=== PATIENT | male | born 1965 | race Caucasian/White ===

== ENCOUNTER → 2016-12-11 | Outpatient (CLI) | payer OTHER ==
[2016-12-11 10:22] LABS: Anisocytosis Slight; CH 19.2; CHCM 27.6; HCT 33.6 % (39.0-53.0); HDW 3.66; HGB 9.6 gm/dL (13.0-17.5); Hypochromasia Marked; MCH 20.1 pg (25.0-35.0); MCHC 28.7 g/dL (31.0-37.0); MCV 70.1 fL (80.0-100.0); Mean Platelet Volume 8.6; Microcytosis Marked; Poikilocytosis Slight; RBC 4.79 m/uL (4.30-5.90); WBC 4.8 k/uL (3.8-10.6)
[2016-12-11 10:49] LABS: Anion Gap 9 mmol/L; Blood Urea Nitrogen 16 mg/dL (9-20); Carbon Dioxide 25 mmol/L (22-30); Chloride 106 mmol/L (98-107); Non-African American GFR(MDRD) >60 (>60 ml/min/1.73 sqM); Potassium 4.5 mmol/L (3.5-5.1); Sodium 140 mmol/L (137-145)
== END | disposition home or self-care (01) ==
LOC: LABPAT 10:01
PROVIDERS: ATTEND Internal Medicine Interventional Cardiology
DX: Z01.812 Encounter for preprocedural laboratory examination (principal); I25.10 Atherosclerotic heart disease of native coronary artery without angina pectoris
CPT/HCPCS: 80051; 82565; 84520; 85027

== ENCOUNTER 2016-12-15 06:07 | Day surgery (SDC) | payer OTHER ==
[2016-12-15] MEDS ORDERED: ASPIRIN 325 MG TAB PO STA (06:12)
[2016-12-15] MEDS ORDERED: NITROGLYCERIN SL TABS 0.4 MG TAB SUBLINGUAL PRN ×2 (06:12→08:38)
[2016-12-15] MEDS ORDERED: SODIUM CHLORIDE 0.9% 1,000 ML in EMPTY BAG 1 BAG IV ONE (06:12)
[2016-12-15] MEDS ORDERED: ALPRAZolam 0.25 MG TAB PO PRN (06:12)
[2016-12-15] MEDS ORDERED: ATORVASTATIN 80 MG TAB PO STA (06:12)
[2016-12-15] MEDS ORDERED: ALPRAZolam 0.5 MG TAB PO PRN ×2 (06:12→08:38)
[2016-12-15] MEDS ORDERED: LIDOCAINE 2% INJ 20 MG/ML (20 ML MDV) ONE (07:16)
[2016-12-15] MEDS ORDERED: VERAPAMIL 2.5 MG/ML 2 ML AMP ONE (07:16)
[2016-12-15] MEDS ORDERED: MIDAZOLAM 2 MG/2 ML VIAL ONE (07:38)
[2016-12-15] MEDS ORDERED: SODIUM CHLORIDE 0.9% 1,000 ML IV ONE (07:41)
[2016-12-15] MEDS: MIDAZOLAM 2 MG/2 ML VIAL IVP ONE ×2 (08:01→08:04)
[2016-12-15] MEDS ORDERED: LIDOCAINE 2% INJ 20 MG/ML SQ ONE (08:04)
[2016-12-15] MEDS ORDERED: HEPARIN SODIUM 1,000 UNIT/ML VIAL IV ONE (08:05)
[2016-12-15] MEDS: VERAPAMIL SYRINGE (5 MG/10 ML) INTRAARTER ONE ×2 (08:05→08:34)
[2016-12-15] MEDS ORDERED: BIVALIRUDIN BOLUS 250 MG/50 ML IV ONE (08:19)
[2016-12-15] MEDS ORDERED: BIVALIRUDIN 250 MG in SODIUM CHLORIDE 0.9% 50 ML IV ONE (08:20)
[2016-12-15] MEDS: NITROGLYCERIN 1000MCG/10ML SYRINGE INTRACORON ONE ×2 (08:22→08:32)
[2016-12-15] MEDS ORDERED: HEPARIN SODIUM 1,000 UNIT/ML VIAL ONE (08:23)
[2016-12-15] MEDS ORDERED: PRASUGREL 10 MG TAB ONE (08:30)
[2016-12-15] MEDS ORDERED: IOHEXOL 350 MG/ML 100 ML BOTTLE INJ ONE (08:32)
[2016-12-15] MEDS ORDERED: PRASUGREL 10 MG TAB PO ONE (08:32)
[2016-12-15] MEDS ORDERED: ATROPINE SULFATE 0.1 MG/ML 10ML SYRINGE IV PRN (08:38)
[2016-12-15] MEDS ORDERED: MAG HYDROX/AL HYDROX/SIMETH 30 ML CUP PO PRN (08:38)
[2016-12-15] MEDS ORDERED: RX INFO: IV CONTRAST WAS GIVEN 1 EACH MISC MISCELLANE PRN (08:38)
[2016-12-15] MEDS ORDERED: METOPROLOL TARTRATE 25 MG TAB PO SCH (09:00)
[2016-12-15] MEDS: SODIUM CHLORIDE 0.9% 1,000 ML IV SCH ×2 (09:12→11:11)
[2016-12-15 09:51] VITALS: BMI 34.7
[2016-12-15] MEDS ORDERED: CITALOPRAM HYDROBROMIDE 20 MG TAB PO SCH (21:00)
[2016-12-15] MEDS ORDERED: ZOLPIDEM 5 MG TAB PO PRN (21:00)
[2016-12-15] MEDS: NIACIN TR 500 MG CAPSULE.ER PO SCH (21:12)
[2016-12-15] MEDS: METOPROLOL TARTRATE 25 MG TAB PO SCH (21:12)
--- NOTE | 2016-12-15 23:53 | CC ---
DATE OF SERVICE: 12/15/2016 PERFORMING PHYSICIAN: Constantino Trejo M.D., torts law professor. PROCEDURES PERFORMED: 1. Selective left coronary angiogram. 2. Successful stenting of the mid left anterior descending artery using a 3.0 x 15 mm Xience ROOSEVELT with good angiographic results. INDICATION: This is a pleasant 51-year-old gentleman who is known to have coronary artery disease and prior stenting of the mid left circumflex in the past. It was performed in [address] of town. He was experiencing intermittent episodes of chest discomfort consistent with angina. 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 APPROACH: Right radial artery. COMPLICATIONS: None. LEVEL OF SEDATION: Moderate, with a sedation length of 33 minutes. PROCEDURE DESCRIPTION: After obtaining informed consent, the patient was brought to the cardiac director geophysical laboratory. The right radial artery was cannulated using micropuncture technique. The micropuncture wire passed easily. Then I placed a 6 Kazakh sheath in the right radial artery. I gave the patient 2 mg of Verapamil IA and 3000 units of heparin IV. After that I did selective left coronary angiogram using JL3.5 catheter. I did not do selective right coronary angiogram because I know that the right coronary artery originates from the left coronary cusp and it is a small, non-dominant artery. After that I intervened on the LAD. Please see separate paragraph for that. SELECTIVE CORONARY ANGIOGRAM: 1. The left main is a large-caliber vessel. It is angiographically normal. It bifurcates into the left circumflex and left anterior descending artery. 2. The left circumflex is a large-caliber vessel and it is a dominant vessel. The proximal left circumflex has mild disease only and gives rise to the first OM branch, which appeared to be angiographically normal. The mid left circumflex is stented, and the stent is patent. It gives rise to the second OM branch, which is a large-caliber vessel and seems to be angiographically normal. The left circumflex distally is angiographically normal and bifurcates into PDA and PLV branches; both are angiographically normal. 3. Left anterior descending artery. The proximal LAD appeared to have mild disease only. The mid LAD appeared to have a lesion, hazy and tight in the range of 70%. The LAD distally appeared to be angiographically normal. PCI OF THE LAD: Anticoagulation was initiated using Angiomax. Subsequently I took the JL3.5 guide, and the left main was engaged. A Whisper wire was used to wire the left anterior descending artery, and the wire was positioned in the distal LAD. After that I did balloon angioplasty, initially using a 2.5 x 12 mm balloon, and subsequently I stented the LAD using a 3.0 x 15 mm Xience ROOSEVELT, where the stent was positioned under fluoroscopy guidance and deployed under 10 atmospheres for 20 seconds. The following angiogram showed good angiographic results without perforation and without dissection. CONCLUSION: 1. Dominant left circumflex coronary system. 2. 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 3. Normal left main coronary artery. 4. Patent stent in the mid left circumflex. 5. Severe de calin coronary artery disease involving the mid left anterior descending artery. 6. Successful stenting of the mid LAD using a 3.0 x 15 mm Xience ROOSEVELT, with good angiographic results. POST-PROCEDURE MANAGEMENT: 1. Dual antiplatelet therapy. 2. Risk factor modifications. 3. Follow up with the patient.
--- NOTE | 2016-12-15 23:55 | LTR ---
December 15, 2016 RE: Josef Jauregui Dear Tyrese, Mr. Josef Jauregui was experiencing intermittent episodes of chest discomfort consistent with angina. I performed a heart catheterization on him today and that showed patent stent in the left circumflex but severe disease involving the mid left anterior descending artery. He underwent successful stenting of the mid LAD with good angiographic results and without any complication. I want to thank you for allowing me to participate in his care. Please do not hesitate to call with any question or concerns. Sincerely, BERNADINE LATHAM MD
[2016-12-16 05:53] VITALS: PULSE 60
[2016-12-16 06:18] LABS: Anisocytosis Slight; Basophils % (A) 0 %; CH 19.4; Eosinophils # (A) 0.1 k/uL (0-0.7); Eosinophils % (A) 1 %; HCT 34.3 % (39.0-53.0); HDW 3.69; HGB 9.7 gm/dL (13.0-17.5); Hypochromasia Marked; Luc # (Auto) 0.27; Luc % (Auto) 4; Lymphocytes # (A) 1.2 k/uL (1.0-4.8); Lymphocytes % (A) 19 %; MCH 19.6 pg (25.0-35.0); MCHC 28.2 g/dL (31.0-37.0); MCV 69.6 fL (80.0-100.0); Microcytosis Marked; Monocytes # (A) 0.5 k/uL (0-1.0); Monocytes % (A) 8 %; Neutrophils # (A) 4.4 k/uL (1.3-7.7); Neutrophils % (A) 68 %; Poikilocytosis Slight; RBC 4.93 m/uL (4.30-5.90); RDW 18.4 % (11.5-15.5); WBC 6.5 k/uL (3.8-10.6); WBC (Perox) 7.08
[2016-12-16 06:28] LABS: Anion Gap 11 mmol/L; Blood Urea Nitrogen 13 mg/dL (9-20); Calcium 8.7 mg/dL (8.4-10.2); Carbon Dioxide 24 mmol/L (22-30); Chloride 103 mmol/L (98-107); Glucose 100 mg/dL (74-99); Non-African American GFR(MDRD) >60 (>60 ml/min/1.73 sqM); Potassium 4.2 mmol/L (3.5-5.1); Sodium 138 mmol/L (137-145)
[2016-12-16] MEDS ORDERED: PRASUGREL 10 MG TAB PO SCH (09:00)
[2016-12-16] MEDS ORDERED: ASPIRIN 81 MG CHEW PO SCH (09:00)
[2016-12-16] MEDS: NIACIN TR 500 MG CAPSULE.ER PO SCH (10:05)
[2016-12-16] MEDS: METOPROLOL TARTRATE 25 MG TAB PO SCH (10:06)
[2016-12-16 10:59] VITALS: BP 111/66; RESP 16; TEMP 97.6
[2016-12-16] MEDS ORDERED: ATORVASTATIN 40 MG TAB PO SCH (21:00)
--- NOTE | 2016-12-17 09:38 | DS ---
DATE OF ADMISSION: 12/15/2016 DATE OF DISCHARGE: 12/16/2016 BRIEF HISTORY: This is a pleasant 51-year-old male patient who is known to have coronary artery disease and prior stenting of the left circumflex was experiencing chest discomfort consistent with angina. He underwent a heart catheterization yesterday and that showed patent stent in the mid left circumflex, but he was found to have severe disease involving the mid LAD where he underwent stenting of the mid LAD using Xience ROOSEVELT with a good angiographic result. On followup with him today, he is doing good and he is asymptomatic. The procedure was performed from the right radial artery. He does have good right radial pulse. From the cardiovascular standpoint of view, the patient can be discharged home and I will follow up with the patient as an outpatient in the office.
== END 2016-12-16 11:03 | disposition home or self-care (01) ==
LOC: CATHCVL 06:07 → 6SEL 08:33 → CATHCVL 12-16 11:03
PROVIDERS: ATTEND Internal Medicine Interventional Cardiology
DX: I25.110 Atherosclerotic heart disease of native coronary artery with unstable angina pectoris (principal); I10 Essential (primary) hypertension; E78.5 Hyperlipidemia, unspecified; Z95.5 Presence of coronary angioplasty implant and graft; Z87.891 Personal history of nicotine dependence; E66.3 Overweight; Z68.34 Body mass index [BMI] 34.0-34.9, adult; Z79.82 Long term (current) use of aspirin; Z79.899 Other long term (current) drug therapy; Z88.6 Allergy status to analgesic agent
CPT/HCPCS: 93454; 80048; 85025; 99152; 99153; C9600; C1769; C1887; C1725; C1874; C1894; J2001; J2250; Q9967; J1644; J0583

== ENCOUNTER → 2017-07-06 | Outpatient (CLI) | payer OTHER ==
--- NOTE | 2017-07-06 16:54 | CT ---
EXAMINATION TYPE: CT abdomen wo/w con DATE OF EXAM: 07/06/2017 COMPARISON: 06/17/2017 ultrasound HISTORY: Abnormal lab results and upper abdomen discomfort CT DLP: 2535.4 mGycm Automated exposure control for dose reduction was used. TECHNIQUE: Helical acquisition of images was performed from the lung bases through the top of iliac crest to include entire abdomen. CONTRAST: Performed with Oral Contrast and without and with IV Contrast, patient injected with 100 mL of Omnipa que 300. FINDINGS: LUNG BASES: No significant abnormality is appreciated. LIVER/GB: No significant abnormality is appreciated. PANCREAS: No significant abnormality is seen. SPLEEN: No significant abnormality is seen. ADRENALS: No significant abnormality is seen. KIDNEYS: There are punctate calcifications which appear to be predominantly cortical bilaterally with 2 noted on the left and 5 on the right. No hydronephrosis. There is marked atrophy of the right kidn ey with cortical thinning compatible with chronic medical renal disease. 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 The smaller ap pearing additional left-sided kidney may be directly opposed to the larger left kidney but contains c alcifications and cortical thinning similar to the right-sided kidney. Hypodense lesion lower pole right kidney is too small to characterize. BOWEL: No significant abnormality is seen. LYMPH NODES: No significant abnormality is seen. OSSEOUS STRUCTURES: Hypertrophic and degenerative change of the spine noted.. OTHER: Aorta of normal caliber. IMPRESSION: 1. Right kidney appears to be atrophic with cortical loss and cortical calcifications. Contains a les s than 1 cm indeterminate lower pole right renal lesion. 2. Left kidney appears to be enlarged with additional cortical calcifications. No hydronephrosis. 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 The upper pole cortex of the sm aller kidney may fuse with the lower pole of the larger kidney. 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 3. Normal-appearing pancreas
== END | disposition home or self-care (01) ==
LOC: RADCTMAIN 15:08
PROVIDERS: ATTEND Family Medicine
DX: N28.89 Other specified disorders of kidney and ureter (principal)
CPT/HCPCS: 74170; Q9967

== ENCOUNTER 2019-03-09 09:53 | Observation (INO) | payer OTHER ==
[2019-03-09] MEDS ORDERED: ASPIRIN 81 MG PO STA (10:30)
[2019-03-09] MEDS ORDERED: NITROGLYCERIN OINT 1 INCH/GM PACKET TOPICAL STA (10:30)
--- NOTE | 2019-03-09 10:37 | ED ---
General Adult HPI - General Chief complaint: Chest Pain Stated complaint: Chest pain,SOB Time Seen by Provider: 03/09/19 10:00 Source: patient, RN notes reviewed Mode of arrival: wheelchair Limitations: no limitations - History of Present Illness Initial comments: This is a 53-year-old male who presents emergency Department with a past medical history significant for heart attack and 2 stent placements. Patient also has high blood pressure high cholesterol and a smoking history but he did quit 5 years ago. Patient comes in today complaining of chest pain. Patient states with the chest pain he was also short of breath. Patient states been inter mittent since 3 AM. Patient states the same type of pain that he had when he had his heart attack the only differences it's not as severe. Patient denies any abdominal pain. Patient denies any palpitations. Patient denies any nausea or vomiting. Patient denies any diaphoretic episodes. Patient states currently is chest pain-free. Patient denies any lightheadedness dizziness or near syncopal episode. Patient denies any numbness or weakness. Patient denies any leg swelling or calf tenderness. - Related Data Home Medications Medication Instructions Recorded Confirmed ALPRAZolam [Xanax] 0.5 mg PO DAILY 12/10/16 03/09/19 Aspirin 81 mg PO DAILY 12/10/16 03/09/19 Atorvastatin [Lipitor] 40 mg PO DAILY 12/10/16 03/09/19 Niacin 500 mg PO DAILY 12/10/16 03/09/19 Metoprolol Tartrate 25 mg PO BID 12/11/16 03/09/19 FLUoxetine HCL [PROzac] 40 mg PO DAILY 03/09/19 03/09/19 Allergies Allergy/AdvReac Type Severity Reaction Status Date / Time ENTERIC COATING Allergy Unknown Uncoded 03/09/19 10:23 Review of Systems ROS Statement: Those systems with pertinent positive or pertinent negative responses have been documented in the HPI. ROS Other: All systems not noted in ROS Statement are negative. Past Medical History Past Medical History: Hyperlipidemia, Hypertension, Myocardial Infarction (ME) Additional Past Medical History / Comment(s): NEPHRITIS Last Myocardial Infarction Date:: Feb History of Any Multi-Drug Resistant Organisms: None Reported Past Surgical History: Heart Catheterization With Stent, Hernia Repair Additional Past Surgical History / Comment(s): RIGHT FOOT SURGERY, Past Anesthesia/Blood Transfusion Reactions: No Reported Reaction Date of Last Stent Placement:: FEB 2013 Past Psychological History: Panic Disorder Smoking Status: Former smoker Past Alcohol Use History: None Reported Past Drug Use History: None Reported - Past Family History Sister(s) Family Medical History: Cancer Additional Family Medical History / Comment(s): LUNG CANCER General Exam - General Exam Comments Initial Comments: GENERAL: Patient is well-developed and well-nourished. Patient is nontoxic and well- hydrated and is in no acute distress. ENT: Neck is soft and supple. No significant lymphadenopathy is noted. Oropharynx is clear. Moist mucous membranes. Neck has full range of motion without eliciting any pain. EYES: The sclera were anicteric and conjunctiva were pink and moist. Extraocular movements were intact and pupils were equal round and reactive to light. Eyelids were unremarkable. PULMONARY: Unlabored respirations. Good breath sounds bilaterally. No audible rales rhonchi or wheezing was noted. CARDIOVASCULAR: There is a regular rate and rhythm without any murmurs gallops or rubs. ABDOMEN: Soft and nontender with normal bowel sounds. No palpable organomegaly was noted. There is no palpable pulsatile mass. SKIN: Skin is clear with no lesions or rashes and otherwise unremarkable. NEUROLOGIC: Patient is alert and oriented x3. Cranial nerves II through XII are grossly intact. Motor and sensory are also intact. Normal speech, volume and content. Symmetrical smile. MUSCULOSKELETAL: Normal extremities with adequate strength and full range of motion. No lower extremity swelling or edema. No calf tenderness. LYMPHATICS: No significant lymphadenopathy is noted PSYCHIATRIC: Normal psychiatric evaluation. Limitations: no limitations Course Vital Signs 03/09/19 03/09/19 03/09/19 09:56 10:40 10:58 Temperature 98.4 F Pulse Rate 56 L Pulse Rate [ 62 Event Technician ] Respiratory 18 16 Rate Blood Pressure 166/82 O2 Sat by Pulse 98 Oximetry 03/09/19 03/09/19 11:02 11:24 Temperature Pulse Rate 51 L 51 L Pulse Rate [ Event Technician ] Respiratory 16 18 Rate Blood Pressure 119/69 119/69 O2 Sat by Pulse 99 99 Oximetry Medical Decision Making - Medical Decision Making EKG shows sinus bradycardia 51 bpm MS interval is 186 QRS is 76 QT intervals 416 QTC is 383. Patient's EKG shows no ST segment elevation or depression or T wave abnormalities are noted. Chest x-ray shows no acute abnormality. Patient's hemoglobin was 8.3 side did not start the patient on heparin even though I believe he is having unstable angina. I spoke with Dr. Christopher she agreed to admit the patient admitted the patient I wrote admitting orders I wrote a consult for cardiology. - Lab Data Result diagrams: 03/09/19 10:24 03/09/19 10:24 Lab Results 03/09/19 03/09/19 03/09/19 Range/Units 10:24 10:24 10:24 WBC 4.2 (3.8-10.6) k/uL RBC 4.68 (4.30-5.90) m/uL Hgb 8.3 L (13.0-17.5) gm/dL Hct 30.4 L (39.0-53.0) % MCV 65.0 L (80.0-100.0) fL MCH 17.6 L (25.0-35.0) pg MCHC 27.2 L (31.0-37.0) g/dL RDW 19.8 H (11.5-15.5) % Plt Count 224 (150-450) k/uL Neutrophils % (Manual) 70 % Band Neutrophils % 1 % Lymphocytes % (Manual) 21 % Monocytes % (Manual) 7 % Eosinophils % (Manual) 1 % Neutrophils # (Manual) 2.90 (1.3-7.7) k/uL Lymphocytes # (Manual) 0.88 L (1.0-4.8) k/uL Monocytes # (Manual) 0.29 (0-1.0) k/uL Eosinophils # (Manual) 0.04 (0-0.7) k/uL Nucleated RBCs 0 (0-0) /100 WBC Manual Slide Review Performed Hypochromasia Marked Poikilocytosis Moderate Anisocytosis Slight Microcytosis Marked PT 10.6 (9.0-12.0) sec INR 1.0 (<1.2) APTT 25.5 (22.0-30.0) sec Sodium 139 (137-145) mmol/L Potassium 4.1 (3.5-5.1) mmol/L Chloride 104 (98-107) mmol/L Carbon Dioxide 27 (22-30) mmol/L Anion Gap 8 mmol/L BUN 19 (9-20) mg/dL Creatinine 1.01 (0.66-1.25) mg/dL Est GFR (CKD-EPI)AfAm >90 (>60 ml/min/1.73 sqM) Est GFR (CKD-EPI)NonAf 84 (>60 ml/min/1.73 sqM) Glucose 144 H (74-99) mg/dL Calcium 8.9 (8.4-10.2) mg/dL Magnesium 2.0 (1.6-2.3) mg/dL Total Bilirubin 0.8 (0.2-1.3) mg/dL AST 22 (17-59) U/L ALT 21 (21-72) U/L Alkaline Phosphatase 82 (38-126) U/L Troponin I (0.000-0.034) ng/mL Total Protein 7.2 (6.3-8.2) g/dL Albumin 4.0 (3.5-5.0) g/dL 03/09/19 Range/Units 10:24 WBC (3.8-10.6) k/uL RBC (4.30-5.90) m/uL Hgb (13.0-17.5) gm/dL Hct (39.0-53.0) % MCV (80.0-100.0) fL MCH (25.0-35.0) pg MCHC (31.0-37.0) g/dL RDW (11.5-15.5) % Plt Count (150-450) k/uL Neutrophils % (Manual) % Band Neutrophils % % Lymphocytes % (Manual) % Monocytes % (Manual) % Eosinophils % (Manual) % Neutrophils # (Manual) (1.3-7.7) k/uL Lymphocytes # (Manual) (1.0-4.8) k/uL Monocytes # (Manual) (0-1.0) k/uL Eosinophils # (Manual) (0-0.7) k/uL Nucleated RBCs (0-0) /100 WBC Manual Slide Review Hypochromasia Poikilocytosis Anisocytosis Microcytosis PT (9.0-12.0) sec INR (<1.2) APTT (22.0-30.0) sec Sodium (137-145) mmol/L Potassium (3.5-5.1) mmol/L Chloride (98-107) mmol/L Carbon Dioxide (22-30) mmol/L Anion Gap mmol/L BUN (9-20) mg/dL Creatinine (0.66-1.25) mg/dL Est GFR (CKD-EPI)AfAm (>60 ml/min/1.73 sqM) Est GFR (CKD-EPI)NonAf (>60 ml/min/1.73 sqM) Glucose (74-99) mg/dL Calcium (8.4-10.2) mg/dL Magnesium (1.6-2.3) mg/dL Total Bilirubin (0.2-1.3) mg/dL AST (17-59) U/L ALT (21-72) U/L Alkaline Phosphatase (38-126) U/L Troponin I <0.012 (0.000-0.034) ng/mL Total Protein (6.3-8.2) g/dL Albumin (3.5-5.0) g/dL Disposition Clinical Impression: Unstable angina pectoris, Anemia Disposition: ADMITTED IP TO THIS HOSP Referrals: Tyrese Christopher DO [Primary Care Provider] - 1-2 days Time of Disposition: 12:24
[2019-03-09 10:51] LABS: Partial Thromboplastin Time 25.5 sec (22.0-30.0); Prothrombin Time 10.6 sec (9.0-12.0)
[2019-03-09 10:53] LABS: ALT 21 U/L (21-72); AST 22 U/L (17-59); African American GFR (CKD) >90 (>60 ml/min/1.73 sqM); Alkaline Phosphatase 82 U/L (38-126); Anion Gap 8 mmol/L; Blood Urea Nitrogen 19 mg/dL (9-20); Calcium 8.9 mg/dL (8.4-10.2); Carbon Dioxide 27 mmol/L (22-30); Chloride 104 mmol/L (98-107); Glucose 144 mg/dL (74-99); Potassium 4.1 mmol/L (3.5-5.1); Sodium 139 mmol/L (137-145); Total Bilirubin 0.8 mg/dL (0.2-1.3); Total Protein 7.2 g/dL (6.3-8.2)
[2019-03-09 11:07] LABS: Anisocytosis Slight; HCT 30.4 % (39.0-53.0); HGB 8.3 gm/dL (13.0-17.5); Hypochromasia Marked; MCH 17.6 pg (25.0-35.0); MCHC 27.2 g/dL (31.0-37.0); Microcytosis Marked; Platelet Count 224 k/uL (150-450); Poikilocytosis Moderate; RBC 4.68 m/uL (4.30-5.90); RDW 19.8 % (11.5-15.5); WBC 4.2 k/uL (3.8-10.6)
[2019-03-09 11:46] LABS: Band Neutrophils % 1 %; Eosinophils # (M) 0.04 k/uL (0-0.7); Lymphocytes # (M) 0.88 k/uL (1.0-4.8); Monocytes # (M) 0.29 k/uL (0-1.0); Neutrophils % (M) 70 %; Nucleated Red Blood Cells 0 /100 WBC (0-0); Total Cells Counted 100
--- NOTE | 2019-03-09 11:48 | XR ---
EXAMINATION TYPE: XR chest 2V DATE OF EXAM: 03/09/2019 COMPARISON: 06/13/2017 HISTORY: 53-year-old male with chest pain TECHNIQUE: PA and lateral views FINDINGS: Heart upper limits of normal in size. Aorta and pulmonary vasculature within normal limits. Mild stra ndy atelectasis lower lungs. No consolidation or pleural effusion seen. IMPRESSION: For the heart size. Strandy lower lung atelectasis. No acute cardiopulmonary process seen.
[2019-03-09] MEDS ORDERED: NITROGLYCERIN SL TABS 0.4 MG TAB SUBLINGUAL PRN (12:25)
--- NOTE | 2019-03-09 15:22 | P.CRDCN ---
History of Present Illness History of present illness: This is a pleasant 53-year-old male past medical history significant for coronary artery disease status post stent placement to the circumflex and LAD, myocardial infarction in 2013, diabetes mellitus, hypertension, dyslipidemia, chronic anemia, former nicotine dependence and obesity. He follows in the office with Dr. Trejo. We have been asked to see him in consultation secondary to chest discomfort and shortness of breath. He states he woke up acutely at 0300 from sleep feeling short of breath. He got up and did some work and his shortness of breath subsided. Later in the morning he was at work exerting himself and he again became short of breath and had chest tightness. The discomfort did not radiate to his arms, back, neck or jaw. This episode was associated with diaphoresis. No dizziness, nausea, vomiting or palpitations. The chest tightness persisted with rest so he came to ED for evaluation. Chest pain resolved with nitropaste. He describes a similar type [place] n with his SC in 2012 however this instance is less intense. Cardiac catherization performed in 2016 revealed LM free of disease, circumflex mild disease proximally with patent mid stent, first OM normal, LAD mild disease proximally with a mid lesion 70% that was stented at that time. No RCA engaged due to origination from the left coronary artery cusp and small non-dominant artery. EKG reveals sinus bradycardia heart rate [address] or T wave abnormalities noted. Chest x-ray reveals some evidence of atelectasis with no acute cardiopulmonary process. Laboratory data reviewed, hemoglobin 8.3, platelets 224, sodium 139, potassium 4.1, creatinine 1.01, magnesium 2.0, cardiac enzymes negative 1. Current cardiac medications include aspirin 81 mg daily, atorvastatin 40 mg daily and metoprolol 25 mg twice a day. Most recent echocardiogram in the office March 2018 reveals preserved LV systolic function with ejection fraction 60%. At the time of my exam: CONSTITUTIONAL: Denies fever. Denies chills. EYES: Denies blurred vision. Denies vision changes. Denies eye pain. EARS, NOSE, MOUTH & THROAT: Denies headache. Denies sore throat. Denies ear pain. CARDIOVASCULAR: Denies chest pain. Denies shortness of breath. Denies orthopnea. Denies PND. Denies palpitations. RESPIRATORY: Denies cough. GASTROINTESTINAL: Denies abdominal pain. Denies diarrhea. Denies constipation. Denies nausea. Denies vomiting. MUSCULOSKELETAL: Denies myalgias. INTEGUMENTARY: Denies pruitis. Denies rash. NEUROLOGIC: Denies numbness. Denies tingling. Denies weakness. PSYCHIATRIC: Denies anxiety. Denies depression. ENDOCRINE: Denies fatigue. Denies weight change. Denies polydipsia. Denies polyurina. GENITOURINARY: Denies burning, hematuria or urgency with micturation. HEMATOLOGIC: Denies history of anemia. Denies bleeding. Blood pressure 122/72 heart rate 58 afebrile maintaining oxygen saturation on room air. GENERAL: This is a 53-year-old male in no apparent distress at the time of my examination. HEENT: Head is atraumatic, normocephalic. Pupils are equal, round. Sclerae anicteric. Conjunctivae are clear. Mucous membranes of the mouth are moist. Neck is supple. There is no jugular venous distention. No carotid bruit is heard. LUNGS: Clear to auscultation no wheezes, rales or rhonchi. No chest wall tenderness is noted on palpation or with deep breathing. HEART: Regular rate and rhythm without murmurs, rubs or gallops. S1 and S2 heard. ABDOMEN: Soft, nontender. Bowel sounds are heard. No organomegaly noted. EXTREMITIES: No evidence of peripheral edema and no calf tenderness noted. VASCULAR: Radial and dorsalis pedis pulses palpated, no evidence of clubbing. NEUROLOGIC: Patient is awake, alert and oriented x3. ASSESSMENT Chest pain and shortness of breath suggestive of unstable angina but also could be related to anemia. Currently chest pain free with no further shortness of breath. Hypochromic microcytic anemia Coronary artery disease s/p stent placement to the LAD and circumflex Hypertension Dyslipidemia Obesity, BMI 34 Former nicotine dependence PLAN Continue to obtain serial cardiac enzymes to rule out an acute event. Check d-dimer and proBNP. Obtain 2D echocardiogram and doppler study to assess cardiac structure and function. NPO after midnight. Further recommendations to follow based on clinical course. Thank you kindly for this consultation. Nurse Practitioner note has been reviewed, I agree with a documented findings and plan of care. Patient was seen and examined. 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 Last Myocardial Infarction Date:: Feb History of Any Multi-Drug Resistant Organisms: None Reported Past Surgical History: Heart Catheterization With Stent Additional Past Surgical History / Comment(s): PCI with total of 2 stents-2012 stent to LCX and in 2016 stent to mid LAD, Egd/colonoscopy, R foot surgery d/t foreign body as child Past Anesthesia/Blood Transfusion Reactions: No Reported Reaction Date of Last Stent Placement:: 2016 Smoking Status: Former smoker - Past Family History Sister(s) Family Medical History: Cancer Additional Family Medical History / Comment(s): Sister of lung cancer. She was a smoker. Mother Family Medical History: Dementia Additional Family Medical History / Comment(s): Mother is living. Father Family Medical History: Cancer Additional Family Medical History / Comment(s): Father of cancer at the age of 81 yrs. Pt does not know type of cancer. Medications and Allergies Home Medications Medication Instructions Recorded Confirmed Type ALPRAZolam [Xanax] 0.5 mg PO DAILY 12/10/16 03/09/19 History Aspirin 81 mg PO DAILY 12/10/16 03/09/19 History Atorvastatin [Lipitor] 40 mg PO DAILY 12/10/16 03/09/19 History Niacin 500 mg PO DAILY 12/10/16 03/09/19 History Metoprolol Tartrate 25 mg PO BID 12/11/16 03/09/19 History FLUoxetine HCL [PROzac] 40 mg PO DAILY 03/09/19 03/09/19 History Allergies Allergy/AdvReac Type Severity Reaction Status Date / Time ENTERIC COATING Allergy Unknown Uncoded 03/09/19 10:23 Physical Exam Vitals: Vital Signs Temp Pulse Pulse Resp BP BP Pulse Ox 03/09/19 13:28 99 F 50 L 18 122/72 99 03/09/19 12:54 98.0 F 48 L 18 125/78 95 03/09/19 11:24 51 L 18 119/69 99 03/09/19 11:02 51 L 16 119/69 99 03/09/19 10:58 16 03/09/19 10:40 62 03/09/19 09:56 98.4 F 56 L 18 166/82 98 Intake and Output 03/08/19 03/09/19 03/09/19 22:59 06:59 14:59 Other: Voiding Method Toilet Weight 107.955 kg Results 03/09/19 10:24 03/09/19 10:24 Cardiac Enzymes 03/09/19 03/09/19 Range/Units 10:24 10:24 AST 22 (17-59) U/L Troponin I <0.012 (0.000-0.034) ng/mL Coagulation 03/09/19 Range/Units 10:24 PT 10.6 (9.0-12.0) sec APTT 25.5 (22.0-30.0) sec CBC 03/09/19 Range/Units 10:24 WBC 4.2 (3.8-10.6) k/uL RBC 4.68 (4.30-5.90) m/uL Hgb 8.3 L (13.0-17.5) gm/dL Hct 30.4 L (39.0-53.0) % Plt Count 224 (150-450) k/uL Comprehensive Metabolic Panel 03/09/19 Range/Units 10:24 Sodium 139 (137-145) mmol/L Potassium 4.1 (3.5-5.1) mmol/L Chloride 104 (98-107) mmol/L Carbon Dioxide 27 (22-30) mmol/L BUN 19 (9-20) mg/dL Creatinine 1.01 (0.66-1.25) mg/dL Glucose 144 H (74-99) mg/dL Calcium 8.9 (8.4-10.2) mg/dL AST 22 (17-59) U/L ALT 21 (21-72) U/L Alkaline Phosphatase 82 (38-126) U/L Total Protein 7.2 (6.3-8.2) g/dL Albumin 4.0 (3.5-5.0) g/dL Current Medications Generic Name Dose Route Start Last Admin Trade Name Freq PRN Reason Stop Dose Admin Aspirin 81 mg 03/10/19 09:00 Aspirin PO DAILY [facility] Atorvastatin Calcium 40 mg 03/10/19 09:00 Lipitor PO DAILY [facility] Metoprolol Tartrate 25 mg 03/09/19 21:00 Lopressor PO BID OXANA Nitroglycerin 0.4 mg 03/09/19 12:25 Nitrostat SUBLINGUAL Q5M PRN Chest Pain Nitroglycerin 1 inch 03/09/19 18:00 Nitro-Bid Oint TOPICAL Q6HR OXANA Intake and Output 03/08/19 03/09/19 03/09/19 22:59 06:59 14:59 Other: Voiding Method Toilet Weight 107.955 kg Patient Weight 03/10/19 06:59 Weight 107.955 kg 03/09/19 10:24 03/09/19 10:24
[2019-03-09] MEDS: NITROGLYCERIN OINT 1 INCH/GM PACKET TOPICAL SCH ×2 (17:10→23:19)
[2019-03-09 17:43] LABS: Anisocytosis Slight; Basophils % (A) 1 %; Eosinophils # (A) 0.1 k/uL (0-0.7); Eosinophils % (A) 2 %; HCT 29.5 % (39.0-53.0); HGB 8.1 gm/dL (13.0-17.5); Hypochromasia Marked; Lymphocytes # (A) 1.4 k/uL (1.0-4.8); Lymphocytes % (A) 25 %; MCH 18.5 pg (25.0-35.0); MCHC 27.4 g/dL (31.0-37.0); MCV 67.4 fL (80.0-100.0); Mean Platelet Volume 7.9; Microcytosis Marked; Monocytes # (A) 0.4 k/uL (0-1.0); Monocytes % (A) 8 %; Neutrophils # (A) 3.4 k/uL (1.3-7.7); Neutrophils % (A) 61 %; Platelet Count 226 k/uL (150-450); Poikilocytosis Moderate; RBC 4.38 m/uL (4.30-5.90); RDW 19.8 % (11.5-15.5); WBC 5.6 k/uL (3.8-10.6)
[2019-03-09] MEDS ORDERED: METOPROLOL TARTRATE 25 MG TAB PO SCH (21:00)
[2019-03-09 22:25] LABS: Anisocytosis Slight; Basophils % (A) 1 %; Eosinophils # (A) 0.1 k/uL (0-0.7); Eosinophils % (A) 1 %; HGB 7.8 gm/dL (13.0-17.5); Hypochromasia Marked; Lymphocytes # (A) 1.6 k/uL (1.0-4.8); Lymphocytes % (A) 26 %; MCH 17.5 pg (25.0-35.0); MCV 64.7 fL (80.0-100.0); Mean Platelet Volume 8.7; Microcytosis Marked; Monocytes # (A) 0.5 k/uL (0-1.0); Monocytes % (A) 8 %; Neutrophils # (A) 3.7 k/uL (1.3-7.7); Neutrophils % (A) 61 %; Platelet Count 209 k/uL (150-450); Poikilocytosis Moderate; RBC 4.49 m/uL (4.30-5.90); RDW 19.7 % (11.5-15.5); WBC 6.2 k/uL (3.8-10.6)
[2019-03-10] MEDS: NITROGLYCERIN OINT 1 INCH/GM PACKET TOPICAL SCH (03:10)
[2019-03-10 03:57] VITALS: RESP 18
[2019-03-10 06:15] LABS: Anisocytosis Slight; HCT 30.9 % (39.0-53.0); HGB 8.7 gm/dL (13.0-17.5); Hypochromasia Marked; MCH 18.4 pg (25.0-35.0); MCHC 28.1 g/dL (31.0-37.0); MCV 65.4 fL (80.0-100.0); Mean Platelet Volume 8.5; Microcytosis Marked; Platelet Count 239 k/uL (150-450); Poikilocytosis Slight; RBC 4.72 m/uL (4.30-5.90); RDW 19.7 % (11.5-15.5); WBC 5.9 k/uL (3.8-10.6)
[2019-03-10 06:26] LABS: African American GFR (CKD) >90 (>60 ml/min/1.73 sqM); Anion Gap 8 mmol/L; Blood Urea Nitrogen 17 mg/dL (9-20); Calcium 8.8 mg/dL (8.4-10.2); Carbon Dioxide 28 mmol/L (22-30); Chloride 103 mmol/L (98-107); Cholesterol 144 mg/dL (<200); Glucose 96 mg/dL (74-99); HDL Cholesterol 28 mg/dL (40-60); LDL Cholesterol,Calculated 71 mg/dL (0-99); Potassium 4.5 mmol/L (3.5-5.1); Sodium 139 mmol/L (137-145); Triglycerides 225 mg/dL (<150)
[2019-03-10 07:04] LABS: Basophils # (M) 0.06 k/uL (0-0.2); Lymphocytes # (M) 1.18 k/uL (1.0-4.8); Monocytes # (M) 0.59 k/uL (0-1.0); Neutrophils % (M) 69 %; Nucleated Red Blood Cells 0 /100 WBC (0-0); Polychromasia Present; Target Cells Present; Total Cells Counted 100
[2019-03-10 07:20] VITALS: BP 150/71; PULSE 52; TEMP 97.8
--- NOTE | 2019-03-10 07:55 | P.PN ---
Progress Note - Text Progress Note Date: 03/10/19 This is a pleasant 53-year-old gentleman with a past medical history significant for coronary artery disease and prior stenting, hypertension, and dyslipidemia, was admitted to the hospital with shortness of breath and chest pain. The symptoms started while the patient was sleeping. He was admitted to the observation [place] unit to rule out acute coronary event. The EKG showed sinus rhythm without any significant ST or T-wave abnormalities. The cardiac enzymes were checked and came in to be unremarkable. The patient continues to be chest pain free and asymptomatic at this point. On follow-up with him today, 03/10/2019, the patient continues to be asymptomatic at this point. I discussed with him the need for a stress test to rule out severe underlying coronary artery disease and he would like to be discharged home and have it done as an outpatient. Having said that, I'm going to get the patient up and around walking and if he is asymptomatic he might be able to be discharged home and I will follow-up with the patient in a few days in the office. Thank you for allowing us participate in his care
[2019-03-10] MEDS ORDERED: ALPRAZolam 0.5 MG TAB PO SCH (09:00)
[2019-03-10] MEDS ORDERED: ATORVASTATIN 40 MG TAB PO SCH (09:00)
[2019-03-10] MEDS ORDERED: ISOSORBIDE MONONITRATE ER 30 MG TAB.ER.24H PO SCH (09:00)
[2019-03-10] MEDS ORDERED: ASPIRIN 325 MG TAB PO SCH (09:00)
[2019-03-10] MEDS ORDERED: ASPIRIN 81 MG PO SCH (09:00)
[2019-03-10 17:55] LABS: Iron Saturation 4.03 (15.00-50.00)
--- NOTE | 2019-03-10 22:36 | P.HPIM ---
History of Present Illness H&P Date: 03/10/19 This is a pleasant 53-year-old white male who was admitted to the hospital last evening to the emergency department at [facility]. Apparently patient was suffering some midsternal chest pain radiating up his esophagus and stopping there. He denies any diaphoresis nausea or vomiting. He denied any l ightheadedness or dizziness. He admits to pain waking him up through the evening. He denies any diarrhea or constipation. Review of Systems GENERAL: Patient denies fever. Denies chills. EYES: Denies blurred vision. Denies vision changes. Denies eye pain. EARS, NOSE, MOUTH, & THROAT: Denies headache. Denies sore throat. Denies ear pain. RESPIRATORY: Denies cough. Denies shortness of breath. Denies sputum production. Denies hemoptysis. CARDIOVASCULAR: History of coronary artery disease and previous myocardial infarction. Admits to high blood pressure GASTROINTESTINAL: Denies abdominal pain. Denies diarrhea. Denies constipation. Denies nausea. Denies vomiting. Denies heartburn. Denies blood in the stool. GENITOURINARY: Denies urinary frequency. Denies burning. Denies dysuria. Denies cloudy urine. Denies blood in the urine. MUSCULOSKELETAL: Denies myalgias. Denies joint swelling. Denies decreased range of motion beyond patients baseline. INTEGUMENTARY: Denies pruitis. Denies rash. PSYCHIATRIC: Denies suicidal or homicial ideations. ENDOCRINE: Denies weight change. Denies polydipsia. Denies polyuria. HEMATOLOGIC: Denies bleeding disorders. Admits to have an anemia with a prior workup of EGD and colonoscopy. By the late Dr. Frey. Denies going to the instructional writer because he left his appointment prior to being seen. 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 Last Myocardial Infarction Date:: Feb History of Any Multi-Drug Resistant Organisms: None Reported Past Surgical History: Heart Catheterization With Stent Additional Past Surgical History / Comment(s): PCI with total of 2 stents-2012 stent to LCX and in 2017 stent to mid LAD, Egd/colonoscopy, R foot surgery d/t foreign body as child Past Anesthesia/Blood Transfusion Reactions: No Reported Reaction Date of Last Stent Placement:: 2016 Smoking Status: Former smoker - Past Family History Sister(s) Family Medical History: Cancer Additional Family Medical History / Comment(s): Sister of lung cancer. She was a smoker. Mother Family Medical History: Dementia Additional Family Medical History / Comment(s): Mother is living. Father Family Medical History: Cancer Additional Family Medical History / Comment(s): Father of cancer at the age of 81 yrs. Pt does not know type of cancer. Medications and Allergies Home Medications Medication Instructions Recorded Confirmed Type ALPRAZolam [Xanax] 0.5 mg PO DAILY 12/10/16 03/09/19 History Aspirin 81 mg PO DAILY 12/10/16 03/09/19 History Atorvastatin [Lipitor] 40 mg PO DAILY 12/10/16 03/09/19 History Niacin 500 mg PO DAILY 12/10/16 03/09/19 History FLUoxetine HCL [PROzac] 40 mg PO DAILY 03/09/19 03/09/19 History Isosorbide Mononitrate ER [Imdur] 30 mg PO DAILY #30 tab.er.24h 03/10/19 Rx Metoprolol Tartrate [Lopressor] 12.5 mg PO BID #60 dose 03/10/19 Rx Allergies Allergy/AdvReac Type Severity Reaction Status Date / Time ENTERIC COATING Allergy Unknown Uncoded 03/09/19 10:23 Physical Exam Osteopathic Statement: *. No significant issues noted on an osteopathic structural exam other than those noted in the History and Physical/Consult. Vitals: Vital Signs Temp Pulse Pulse Resp BP Pulse Ox 03/10/19 07:00 97.8 F 52 L 18 150/71 99 03/10/19 03:56 97.7 F 58 L 18 150/83 97 03/10/19 03:33 53 L 17 03/10/19 00:00 53 L 17 03/09/19 23:44 97.9 F 53 L 17 130/73 98 Intake and Output 03/10/19 03/10/19 03/10/19 06:59 14:59 22:59 Other: Voiding Method Toilet Toilet # Voids 1 GENERAL: This is a -53 year-old in no apparent distress at the time of examination. Pleasant and cooperative. HEENT: Head is atraumatic, normocephalic. Pupils are equal, round, and reactive to light. Sclerae anicteric. Conjunctivae are clear. Mucus membranes of the mouth are moist. Neck is supple. RESPIRATORY: Clear to auscultation. No wheezes, rales, or rhonchi. No use of accessory muscles. CARDIOVASCULAR: Regular rate and rhythm. S1 and S2 noted. No systolic or diastolic murmur auscultated. No JVD noted. No S3 or S4 noted. GASTROINTESTINAL: No distention noted. Abdomen soft and round. Normal active bowel sounds auscultated x 4 quadrants. No pain or tenderness noted upon palpation. INTEGUMENTARY: No cyanosis. No jaundice. No rashes noted. No cellulitis noted. EXTREMITIES: 2+ peripheral pulses. No evidence of peripheral edema. No calf tenderness noted. NEUROLOGIC: Cranial nerves II-XII intact. PSYCHIATRIC: Awake, alert, and oriented X 3. Appropriate affect. Intact judgement and insight. Results CBC & Chem 7: 03/10/19 05:26 03/10/19 05:26 Labs: Abnormal Lab Results - Last 24 Hours (Table) 03/09/19 03/10/19 03/10/19 Range/Units 22:16 05:26 05:26 Hgb 7.8 L 8.7 L (13.0-17.5) gm/dL Hct 29.0 L 30.9 L (39.0-53.0) % MCV 64.7 L 65.4 L (80.0-100.0) fL MCH 17.5 L 18.4 L (25.0-35.0) pg MCHC 27.0 L 28.1 L (31.0-37.0) g/dL RDW 19.7 H 19.7 H (11.5-15.5) % Iron (65-175) ug/dL Iron Saturation (15.00-50.00) Ferritin (22.0-322.0) ng/mL Triglycerides 225 H (<150) mg/dL HDL Cholesterol 28 L (40-60) mg/dL 03/10/19 Range/Units 05:26 Hgb (13.0-17.5) gm/dL Hct (39.0-53.0) % MCV (80.0-100.0) fL MCH (25.0-35.0) pg MCHC (31.0-37.0) g/dL RDW (11.5-15.5) % Iron 16 L (65-175) ug/dL Iron Saturation 4.03 L (15.00-50.00) Ferritin 5.1 L (22.0-322.0) ng/mL Triglycerides (<150) mg/dL HDL Cholesterol (40-60) mg/dL Thrombosis Risk Factor Assmnt - Choose All That Apply Any of the Below Risk Factors Present?: Yes Each Factor Represents 1 point: Age 41-60 years, Obesity (BMI >25) Other Risk Factors: No Other congenital or acquired thrombophilia - If yes, enter type in comment: No Thrombosis Risk Factor Assessment Total Risk Factor Score: 2 Thrombosis Risk Factor Assessment Level: Low Risk Assessment and Plan (1) Anemia Status: Acute Code(s): D64.9 - ANEMIA, UNSPECIFIED SNOMED Code(s): 985241037 (2) Chest pain Status: Acute Code(s): R07.9 - CHEST PAIN, UNSPECIFIED SNOMED Code(s): 36483840 (3) Symptomatic anemia Status: Acute Code(s): D64.9 - ANEMIA, UNSPECIFIED SNOMED Code(s): 412502708 (4) Unstable angina pectoris Status: Acute Code(s): I20.0 - UNSTABLE ANGINA SNOMED Code(s): 8795423 Plan: Patient was admitted to the hospital and worked up by cardiology. Serial EKGs and enzymes were obtained. Which were normal. Patient will be arranged to have an appointment with hematology oncology for evaluation of persistent anemia. He's had previous EGD and colon and denies any bright red stools or dark black or brown stools. Denies any other source of bleeding. Patient was cleared for cardiology to be discharged and follow-up as outpatient. He'll be placed on the same medications. End of dictation please allow this to count for H&P and discharge summary and
--- NOTE | 2019-03-15 07:03 | ECHOF ---
Referral Reason:cp MEASUREMENTS -------- HEIGHT: 177.8 cm WEIGHT: 108.0 kg BP: RVIDd: 3.1 cm (< 3.3) IVSd: 1.3 cm (0.6 - 1.1) LVIDd: 4.4 cm (3.9 - 5.3) LVPWd: 1.4 cm (0.6 - 1.1) IVSs: 1.7 cm LVIDs: 2.8 cm LVPWs: 2.0 cm LA Diam: 3.6 cm (2.7 - 3.8) LAESV Index (A-L): 32.81 ml/m Ao Diam: 3.6 cm (2.0 - 3.7) AV Cusp: 2.2 cm (1.5 - 2.6) EPSS: 0.6 cm MV E Evan: 1.00 m/s MV DecT: 192 ms MV A Evan: 0.70 m/s MV E/A Ratio: 1.43 AV maxP.47 mmHg AV meanP.82 mmHg RAP: 5.00 mmHg RVSP: 22.86 mmHg MV EF SLOPE: 51.65 mm/s (70 - 150) MV EXCURSION: 1.35 cm (> 18.000) FINDINGS -------- Sinus rhythm. This was a technically adequate study. The left ventricular size is normal. There is moderate concentric left ventricular hypertrophy. O verall left ventricular systolic function is normal with, an EF between 55 - 60 %. The right ventricle is normal in size. Left atrium is mildly dilated by volume. The right atrial size is normal. Interatrial and interventricular septum intact. Aortic valve is trileaflet and is mildly thickened. The mitral valve is normal. There is trace to mild mitral regurgitation. Mild tricuspid regurgitation present. Right ventricular systolic pressure is normal at < 35 mmHg. Trace/mild (physiologic) pulmonic regurgitation. The aortic root size is normal. The inferior vena cava was not well visualized. There is no pericardial effusion. CONCLUSIONS -------- 1. Sinus rhythm. 2. This was a technically adequate study. 3. The left ventricular size is normal. 4. There is moderate concentric left ventricular hypertrophy. 5. Overall left ventricular systolic function is normal with, an EF between 55 - 60 %. 6. Left atrium is mildly dilated by volume. 7. Aortic valve is trileaflet and is mildly thickened. 8. There is trace to mild mitral regurgitation. 9. Mild tricuspid regurgitation present. 10. Right ventricular systolic pressure is normal at < 35 mmHg. 11. Trace/mild (physiologic) pulmonic regurgitation. 12. The aortic root size is normal. 13. The inferior vena cava was not well visualized. 14. There is no pericardial effusion. NETEZZA DEVELOPER: BRIANNA Rich
== END 2019-03-10 10:50 | disposition home or self-care (01) ==
LOC: EC 09:53 → 1SOBS 12:25
PROVIDERS: ADMIT Family Medicine; ATTEND Family Medicine
DX: D50.9 Iron deficiency anemia, unspecified (principal); I25.110 Atherosclerotic heart disease of native coronary artery with unstable angina pectoris; R07.89 Other chest pain; I12.9 Hypertensive chronic kidney disease with stage 1 through stage 4 chronic kidney disease, or unspecified chronic kidney disease; N18.9 Chronic kidney disease, unspecified; E78.00 Pure hypercholesterolemia, unspecified; I10 Essential (primary) hypertension; E78.5 Hyperlipidemia, unspecified; J98.11 Atelectasis; E11.9 Type 2 diabetes mellitus without complications; K57.90 Diverticulosis of intestine, part unspecified, without perforation or abscess without bleeding; I08.1 Rheumatic disorders of both mitral and tricuspid valves; K44.9 Diaphragmatic hernia without obstruction or gangrene; G89.29 Other chronic pain; F41.0 Panic disorder [episodic paroxysmal anxiety]; Z68.34 Body mass index [BMI] 34.0-34.9, adult; E66.9 Obesity, unspecified; Z79.82 Long term (current) use of aspirin; Z79.899 Other long term (current) drug therapy; Z91.048 Other nonmedicinal substance allergy status; Z87.891 Personal history of nicotine dependence; Z87.19 Personal history of other diseases of the digestive system; Z95.5 Presence of coronary angioplasty implant and graft; I25.2 Old myocardial infarction; Z87.440 Personal history of urinary (tract) infections; Z87.09 Personal history of other diseases of the respiratory system; Z81.2 Family history of tobacco abuse and dependence; Z80.1 Family history of malignant neoplasm of trachea, bronchus and lung; Z81.8 Family history of other mental and behavioral disorders; Z80.9 Family history of malignant neoplasm, unspecified
CPT/HCPCS: 99285; 36415; 93005; 93306; 85379; 83880; 80061; 80053; 80048; 82728; 83540; 83550; 83735; 84484; 85025 ×2; 85610; 85730; 82272; 71046; G0378 ×2

== ENCOUNTER → 2019-05-24 | Outpatient (CLI) | payer OTHER ==
[2019-05-24 17:40] LABS: Anisocytosis Marked; HCT 39.3 % (39.0-53.0); HGB 11.2 gm/dL (13.0-17.5); Hypochromasia Marked; MCH 23.3 pg (25.0-35.0); MCHC 28.5 g/dL (31.0-37.0); MCV 81.9 fL (80.0-100.0); Mean Platelet Volume 9.4; Microcytosis Marked; Platelet Count 222 k/uL (150-450); RBC 4.79 m/uL (4.30-5.90); WBC 6.3 k/uL (3.8-10.6)
[2019-05-24 17:46] LABS: RDW 27.3 % (11.5-15.5)
[2019-05-24 17:50] LABS: Potassium 4.1 mmol/L (3.5-5.1)
== END | disposition home or self-care (01) ==
LOC: LABWHC1 16:32
PROVIDERS: ATTEND Internal Medicine Interventional Cardiology
DX: Z01.812 Encounter for preprocedural laboratory examination (principal); I25.118 Atherosclerotic heart disease of native coronary artery with other forms of angina pectoris
CPT/HCPCS: 36415; 80051; 82565; 84520; 85027

== ENCOUNTER 2019-05-31 06:31 | Day surgery (SDC) | payer OTHER ==
[2019-05-24 10:51] VITALS: BMI 35.2
[~2019-05-31 06:31] MED LIST: ALPRAZolam 0.25 MG TAB PO PRN; ALPRAZolam 0.5 MG TAB PO PRN; ASPIRIN 325 MG TAB PO STA; ATORVASTATIN 80 MG TAB PO STA; NITROGLYCERIN SL TABS 0.4 MG TAB SUBLINGUAL PRN; SODIUM CHLORIDE 0.9% 1,000 ML in EMPTY BAG 1 BAG IV ONE
[2019-05-31] MEDS ORDERED: SODIUM CHLORIDE 0.9% 1,000 ML IV ONE (07:18)
[2019-05-31] MEDS ORDERED: LIDOCAINE 1% INJ 10MG/ML (20 ML MDV) ONE (07:25)
[2019-05-31] MEDS ORDERED: VERAPAMIL 2.5 MG/ML 2 ML AMP ONE (07:25)
[2019-05-31] MEDS ORDERED: fentaNYL (PF) 50 MCG/ML 2 ML AMP IV ONE (07:47)
[2019-05-31] MEDS ORDERED: MIDAZOLAM 2 MG/2 ML VIAL IV ONE (07:47)
[2019-05-31] MEDS ORDERED: LIDOCAINE 1% INJ 10MG/ML (20 ML MDV) SQ ONE (07:50)
[2019-05-31] MEDS ORDERED: fentaNYL (PF) 50 MCG/ML 2 ML AMP ONE (07:50)
[2019-05-31] MEDS: VERAPAMIL SYRINGE (5 MG/10 ML) INTRAARTER ONE ×2 (07:52→08:51)
[2019-05-31] MEDS ORDERED: HEPARIN SODIUM 1,000 UN/ML (10ML VL) IV ONE ×2 (07:54→08:57)
[2019-05-31] MEDS ORDERED: HEPARIN SODIUM 1,000 UN/ML (10ML VL) ONE ×2 (07:54→08:56)
[2019-05-31] MEDS ORDERED: IOPAMIDOL-370 125ML BTL INJ ONE (08:30)
[2019-05-31] MEDS ORDERED: hydrALAZINE HCL 20 MG/ML 1 ML VIAL ONE ×2 (08:45→10:18)
[2019-05-31] MEDS ORDERED: hydrALAZINE HCL 20 MG/ML 1 ML VIAL IV ONE (08:47)
[2019-05-31] MEDS ORDERED: CLOPIDOGREL 75 MG TAB ONE (08:48)
[2019-05-31] MEDS: NITROGLYCERIN 1000MCG/10ML SYRINGE INTRAARTER ONE ×2 (08:49→08:50)
[2019-05-31] MEDS ORDERED: CLOPIDOGREL 75 MG TAB PO ONE (08:53)
[2019-05-31] MEDS ORDERED: MAG HYDROX/AL HYDROX/SIMETH 30 ML CUP PO PRN (08:55)
[2019-05-31] MEDS ORDERED: ZOLPIDEM 5 MG TAB PO PRN (08:55)
[2019-05-31] MEDS ORDERED: ATROPINE SULFATE 0.1 MG/ML 10ML SYRINGE IV PRN (08:55)
[2019-05-31] MEDS ORDERED: NITROGLYCERIN SL TABS 0.4 MG TAB SUBLINGUAL PRN (08:55)
[2019-05-31] MEDS ORDERED: RX INFO: IV CONTRAST WAS GIVEN 1 EACH MISC MISCELLANE PRN (08:55)
[2019-05-31] MEDS ORDERED: IOPAMIDOL-370 100ML BTL INJ ONE (08:58)
[2019-05-31] MEDS ORDERED: ALPRAZolam 0.5 MG TAB PO SCH (09:00)
[2019-05-31] MEDS ORDERED: SODIUM CHLORIDE 0.9% 1,000 ML IV SCH (09:00)
[2019-05-31] MEDS ORDERED: hydrALAZINE HCL 20 MG/ML 1 ML VIAL IVP PRN (10:17)
[2019-05-31] MEDS: LISINOPRIL 5 MG TAB PO SCH ×4 (10:56→15:56)
[2019-05-31] MEDS ORDERED: hydrALAZINE HCL 20 MG/ML 1 ML VIAL IVP STA (12:24)
[2019-05-31] MEDS ORDERED: ENALAPRILAT 1.25 MG/ML 1 ML VIAL IVP STA (12:24)
[2019-05-31 14:19] VITALS: RESP 16
--- NOTE | 2019-05-31 15:35 | CC ---
CARDIAC CATHETERIZATION REPORT DATE OF SERVICE: 05/31/2019 PERFORMING PHYSICIAN: Constantino Trejo MD. PROCEDURE PERFORMED: 1. Selective left coronary angiogram. 2. Left heart catheterization. 3. Successful stenting of the first obtuse marginal branch of left circumflex using 2.0 x 15 mm [place] drug-eluting stent with an excellent angiographic result and reduction of stenosis from 90% to 0%. INDICATION: This is a 53-year-old gentleman with history of coronary artery disease and prior stenting of the left circumflex and LAD, who was experiencing symptoms of chest discomfort. He underwent myocardial perfusion imaging stress test and that revealed lateral ischemia. Because of that, a heart catheterization was advised. APPROACH: Right radial artery. COMPLICATION: None. LEVEL OF SEDATION: Moderate with sedation length of 62 minutes. PROCEDURE DESCRIPTION: After obtaining an informed consent, the patient was brought to the cardiac cardiac cath technician. The right radial artery was cannulated using micropuncture technique, the micropuncture wire passed easily, then I placed a 6-[place] sheath in the right radial artery. At that point, I gave the patient 2 mg of verapamil IA and 10,000 units of heparin IV. Selective left coronary angiogram was performed using JL4 catheter. I did not perform selective right coronary angiogram because we know that the right coronary artery comes from the left coronary cusp and is a small nondominant artery from previous studies. After that, left heart catheterization was performed. After that, I did intervene on the OM1 of the circumflex, please see a separate paragraph for that. SELECTIVE CORONARY ANGIOGRAM: 1. The left main is a large caliber vessel. It is angiographically normal, it bifurcates into LCX and LAD. 2. The left circumflex is a large caliber vessel and is a dominant vessel. The proximal circumflex appeared to have mild disease only. It gives rise into first OM branch which is intermediate caliber vessel, about 2 mm vessel, with critical disease in the proximal portion. The mid left circumflex is stented with mild in- stent restenosis. It gives rise into a second OM branch which is a large caliber vessel, seems to be angiographically normal. The circumflex distally, then bifurcates into PDA and PLV branches. The PDA branch appeared to have disease in the range of 50%. The PLV branch appeared to be normal. 3. The LAD, the proximal LAD appeared to have mild disease only. It gives rise into the first diagonal branch which is small caliber vessel with mild disease only. The mid LAD is stented and the stent is patent. The LAD distally appeared to be angiographically normal. HEMODYNAMICS: The LVEDP was about 8 mmHg without significant gradient across the aortic valve. PCI of the LCX: Anticoagulation was initiated using heparin after ACT was checked. We did continue monitoring the ACT throughout the procedure. By the end of the procedure, the patient was given additional 3000 units of heparin. Subsequently, I did engage the left main using JL3.5 guide. I was unable to wire the left circumflex using a run- through wire. I tried using a Whisper wire and I was unable until I got support from Super Cross catheter 120 degree angle. With that I was able to advance the Whisper wire to the distal OM1. Then I did advance the Super Cross catheter and then I pulled the Whisper wire out and I advanced a Mailman wire. I did that to have a better support. After that, I did balloon angioplasty using 2.5 x 12 mm balloon. Subsequently, I deployed 2.0 x 15 mm [place] drug-eluting stent where the stent was positioned under fluoroscopy guidance and deployed under 12 atmospheres for 20 seconds. The following angiogram showed good angiographic results and the procedure was completed without any complication. CONCLUSION: 1. Patent stent in the mid left circumflex. Critical disease involving OM1 of the left circumflex. I did perform successful stenting of OM1. 2. Patent stent in the mid left anterior descending artery. 3. I did not perform a right coronary artery angiogram because the RCA is a small and nondominant and originating from the left coronary cusp. POSTPROCEDURE MANAGEMENT: 1. Dual anti-platelet therapy. 2. Risk factors modifications. 3. Follow up with the patient. MMODL / IJN: [id number] /
[2019-05-31] MEDS: FERROUS SULFATE 325 MG TAB PO SCH (16:14)
[2019-05-31] MEDS: FLUoxetine HCL 20 MG CAP PO SCH (16:14)
[2019-05-31] MEDS: NIACIN TR 500 MG CAPLET PO SCH (16:14)
[2019-05-31] MEDS: METOPROLOL TARTRATE 25 MG TAB PO SCH (20:40)
[2019-05-31] MEDS: ACETAMINOPHEN TAB 325 MG TAB PO PRN (20:51)
[2019-06-01 06:01] LABS: Anisocytosis Marked; Basophils % (A) 0 %; Eosinophils # (A) 0.1 k/uL (0-0.7); Eosinophils % (A) 1 %; HCT 41.3 % (39.0-53.0); HGB 12.5 gm/dL (13.0-17.5); Hypochromasia Marked; Lymphocytes # (A) 0.7 k/uL (1.0-4.8); Lymphocytes % (A) 17 %; MCH 25.1 pg (25.0-35.0); MCHC 30.2 g/dL (31.0-37.0); Microcytosis Moderate; Monocytes # (A) 0.4 k/uL (0-1.0); Monocytes % (A) 8 %; Neutrophils # (A) 3.1 k/uL (1.3-7.7); Neutrophils % (A) 71 %; Platelet Count 170 k/uL (150-450); RBC 4.97 m/uL (4.30-5.90); RDW 24.8 % (11.5-15.5); WBC 4.3 k/uL (3.8-10.6)
[2019-06-01 06:11] LABS: African American GFR (CKD) >90 (>60 ml/min/1.73 sqM); Anion Gap 7 mmol/L; Blood Urea Nitrogen 14 mg/dL (9-20); Calcium 9.1 mg/dL (8.4-10.2); Carbon Dioxide 25 mmol/L (22-30); Chloride 105 mmol/L (98-107); Glucose 96 mg/dL (74-99); Non-African American GFR(CKD) >90 (>60 ml/min/1.73 sqM); Potassium 4.2 mmol/L (3.5-5.1); Sodium 137 mmol/L (137-145)
[2019-06-01] MEDS: METOPROLOL TARTRATE 25 MG TAB PO SCH (07:47)
[2019-06-01] MEDS: LISINOPRIL 5 MG TAB PO SCH (07:47)
[2019-06-01] MEDS: FERROUS SULFATE 325 MG TAB PO SCH (07:48)
[2019-06-01] MEDS: FLUoxetine HCL 20 MG CAP PO SCH (07:48)
[2019-06-01] MEDS: NIACIN TR 500 MG CAPLET PO SCH (07:48)
[2019-06-01 07:55] VITALS: BP 145/91; PULSE 65; TEMP 98.2
[2019-06-01] MEDS: ACETAMINOPHEN TAB 325 MG TAB PO PRN (07:58)
[2019-06-01] MEDS ORDERED: ASPIRIN 81 MG PO SCH (09:00)
[2019-06-01] MEDS ORDERED: ATORVASTATIN 40 MG TAB PO SCH (09:00)
[2019-06-01] MEDS ORDERED: CLOPIDOGREL 75 MG TAB PO SCH (09:00)
--- NOTE | 2019-06-01 15:27 | DS ---
DISCHARGE SUMMARY ADMISSION DATE: 05/31/2019 DISCHARGE DATE: BRIEF HISTORY: This is a pleasant 53-year-old gentleman with history of coronary artery disease who was experiencing symptoms of chest discomfort and underwent myocardial perfusion imaging stress test and that revealed lateral ischemia. He underwent heart catheterization yesterday and that revealed critical disease involving the first obtuse marginal branch of the left circumflex. He underwent successful stenting of the first OM branch using drug-eluting stent with an excellent angiographic results from right radial approach. The patient was seen and evaluated this morning. He is going to be discharged home on dual anti-platelet therapy and I will follow up with the patient next week in the office. MMMINNIEL / IJN: [id number] /
== END 2019-06-01 08:30 | disposition home or self-care (01) ==
LOC: CATHCVL 06:31 → 3SCARD 08:52 → CATHCVL 06-01 08:30
PROVIDERS: ATTEND Internal Medicine Interventional Cardiology
DX: I25.110 Atherosclerotic heart disease of native coronary artery with unstable angina pectoris (principal); I10 Essential (primary) hypertension; E11.9 Type 2 diabetes mellitus without complications; E78.2 Mixed hyperlipidemia; Z79.82 Long term (current) use of aspirin; Z79.899 Other long term (current) drug therapy; Z88.6 Allergy status to analgesic agent; Z87.891 Personal history of nicotine dependence; Z95.5 Presence of coronary angioplasty implant and graft
CPT/HCPCS: 93458; 85347 ×2; 80048; 85025; C9600; C1769 ×4; C1887 ×2; C1725; C1874; C1894; J2250; J0360; J2001; J3010; J1644; Q9967 ×2

== ENCOUNTER 2020-08-14 07:36 | Emergency (ER) | payer OTHER ==
[2020-08-14 07:41] VITALS: RESP 16; TEMP 97.8
[2020-08-14] MEDS ORDERED: SODIUM CHLORIDE 0.65% NASAL SPRAY 44 ML BTL NASAL STA (07:55)
--- NOTE | 2020-08-14 08:00 | ED ---
General Adult HPI - General Chief complaint: Dizziness Stated complaint: nose bleed Time Seen by Provider: 08/14/20 07:42 Source: patient Mode of arrival: ambulatory Limitations: no limitations - History of Present Illness Initial comments: Dictation was produced using [employer] dictation software. please excuse any grammatical, word or spelling errors. This patient was cared for during a federal and state declared state of emergency secondary to Covid 19 Chief Complaint: 55-year-old male presents with dizziness, hypertension and nose bleed History of Present Illness: 55-year-old male who has past medical history of coronary artery disease, dyslipidemia, anemia and hypertension. Patient was up all night findings now when he started to notice that he was progressively dizzy. Denies sensation of the room spinning. He was at his primary care physician's office yesterday and was told that his systolic blood pressure was in the 130s. For him that's high allegedly. He does not have any chest pain, shortness of breath, strokelike symptoms, headache. Patient states he had an episode of nosebleed last night. He noticed some blood on the paper towel. Patient states that the nose bleeding stopped on its own. 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 Patient also reports some dizziness. He states he feels a little lightheaded. Patient not having difficulty ambulating. Denies sensation of the room spinning. The ROS documented in this emergency department record has been reviewed and confirmed by me. Those systems with pertinent positive or negative responses have been documented in the HPI. All other systems are other negative and/or noncontributory. PHYSICAL EXAM: General Impression: Alert and oriented x3, not in acute distress HEENT: Normocephalic atraumatic, extra-ocular movements intact, pupils equal and reactive to light bilaterally, mucous membranes moist. Cardiovascular: Heart regular rate and rhythm Chest: Able to complete full sentences, no retractions, no tachypnea Abdomen: abdomen soft, non-tender, non-distended, no organomegaly Musculoskeletal: Pulses present and equal in all extremities, no peripheral edema Motor: no focal deficits noted Neurological: CN II-XII grossly intact, no focal motor or sensory deficits noted Skin: Intact with no visualized rashes Psych: Normal affect and mood ED course: 55-year-old male presents to the emergency department with asymptomatic hypertension, dizziness and self resolved nosebleed signs upon s hows blood pressure 189/100, rest of vital signs within acceptable limits. Medications were reviewed. Patient takes antihypertensives. He is well- appearing and has normal physical examination. He does not have any concerning signs or symptoms of hypertensive emergency.Patient reevaluated at bedside. Repeat vitals are normal. His blood pressures improved patient given [place] nasal spray. Patient counseled on preventative measures for epistaxis. EKG interpretation: Ventricular rate 61, normal sinus rhythm, MT interval 164, QRS 76, QTC 406. No MT prolongation, no QTC prolongation, no ST or T-wave changes noted. Overall, this EKG is unremarkable - Related Data Home Medications Medication Instructions Recorded Confirmed ALPRAZolam [Xanax] 0.5 mg PO DAILY 12/10/16 08/14/20 Aspirin 81 mg PO DAILY 12/10/16 08/14/20 Niacin 500 mg PO BID 12/10/16 08/14/20 FLUoxetine HCL [PROzac] 40 mg PO DAILY 03/09/19 08/14/20 Ferrous Sulfate [Iron (65 MG 325 mg PO DAILY 05/09/19 08/14/20 Elemental)] Atorvastatin [Lipitor] 80 mg PO DAILY 08/14/20 08/14/20 Metoprolol Tartrate [Lopressor] 12.5 mg PO BID 08/14/20 08/14/20 Previous Rx's Medication Instructions Recorded Clopidogrel [Plavix] 75 mg PO DAILY #90 tab 06/01/19 Allergies Allergy/AdvReac Type Severity Reaction Status Date / Time ENTERIC COATING Allergy Itching/Abdominal Uncoded 08/14/20 08:14 pain Review of Systems ROS Statement: Those systems with pertinent positive or pertinent negative responses have been documented in the HPI. ROS Other: All systems not noted in ROS Statement are negative. 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 Last Myocardial Infarction Date:: Feb History of Any Multi-Drug Resistant Organisms: None Reported Past Surgical History: Heart Catheterization With Stent Additional Past Surgical History / Comment(s): PCI with total of 2 stents-2012 stent to LCX and in 2016 stent to mid LAD, Egd/colonoscopy, R foot surgery d/t foreign body as child Past Anesthesia/Blood Transfusion Reactions: No Reported Reaction Date of Last Stent Placement:: 2016 Past Psychological History: Anxiety, Depression Smoking Status: Former smoker Past Alcohol Use History: None Reported Past Drug Use History: None Reported - Past Family History Sister(s) Family Medical History: Cancer Additional Family Medical History / Comment(s): Sister of lung cancer. She was a smoker. Mother Family Medical History: Dementia Additional Family Medical History / Comment(s): Mother is living. Father Family Medical History: Cancer Additional Family Medical History / Comment(s): Father of cancer at the age of 81 yrs. Pt does not know type of cancer. General Exam Limitations: no limitations Course Vital Signs 08/14/20 08/14/20 07:38 08:31 Temperature 97.8 F Pulse Rate 83 61 Respiratory 16 16 Rate Blood Pressure 189/100 137/81 O2 Sat by Pulse 96 97 Oximetry Medical Decision Making - Lab Data Result diagrams: 08/14/20 07:55 08/14/20 07:55 Lab Results 08/14/20 08/14/20 08/14/20 Range/Units 07:55 07:55 07:55 WBC 5.4 (3.8-10.6) k/uL RBC 4.22 L (4.30-5.90) m/uL Hgb 12.0 L (13.0-17.5) gm/dL Hct 37.8 L (39.0-53.0) % MCV 89.6 (80.0-100.0) fL MCH 28.5 (25.0-35.0) pg MCHC 31.9 (31.0-37.0) g/dL RDW 14.7 (11.5-15.5) % Plt Count 196 (150-450) k/uL MPV 9.3 Neutrophils % 73 % Lymphocytes % 17 % Monocytes % 7 % Eosinophils % 2 % Basophils % 1 % Neutrophils # 3.9 (1.3-7.7) k/uL Lymphocytes # 0.9 L (1.0-4.8) k/uL Monocytes # 0.4 (0-1.0) k/uL Eosinophils # 0.1 (0-0.7) k/uL Basophils # 0.0 (0-0.2) k/uL PT 10.7 (9.0-12.0) sec INR 1.0 (<1.2) APTT 24.3 (22.0-30.0) sec Sodium 139 (137-145) mmol/L Potassium 3.9 (3.5-5.1) mmol/L Chloride 103 (98-107) mmol/L Carbon Dioxide 26 (22-30) mmol/L Anion Gap 10 mmol/L BUN 11 (9-20) mg/dL Creatinine 1.04 (0.66-1.25) mg/dL Est GFR (CKD-EPI)AfAm >90 (>60 ml/min/1.73 sqM) Est GFR (CKD-EPI)NonAf 80 (>60 ml/min/1.73 sqM) Glucose 101 H (74-99) mg/dL Calcium 8.8 (8.4-10.2) mg/dL Disposition Clinical Impression: Epistaxis Disposition: HOME SELF-CARE Condition: Good Instructions (If sedation given, give patient instructions): Nosebleed (ED) Additional Instructions: Follow-up with primary care physician for outpatient management of hypertension Is patient prescribed a controlled substance at d/c from ED?: No Referrals: Tyrese Christopher DO [Primary Care Provider] - 1-2 days Time of Disposition: 08:37
[2020-08-14 08:11] LABS: Basophils % (A) 1 %; Eosinophils # (A) 0.1 k/uL (0-0.7); Eosinophils % (A) 2 %; HCT 37.8 % (39.0-53.0); Lymphocytes # (A) 0.9 k/uL (1.0-4.8); Lymphocytes % (A) 17 %; MCH 28.5 pg (25.0-35.0); MCHC 31.9 g/dL (31.0-37.0); MCV 89.6 fL (80.0-100.0); Mean Platelet Volume 9.3; Monocytes # (A) 0.4 k/uL (0-1.0); Monocytes % (A) 7 %; Neutrophils # (A) 3.9 k/uL (1.3-7.7); Neutrophils % (A) 73 %; Platelet Count 196 k/uL (150-450); RBC 4.22 m/uL (4.30-5.90); RDW 14.7 % (11.5-15.5); WBC 5.4 k/uL (3.8-10.6)
[2020-08-14 08:19] LABS: Partial Thromboplastin Time 24.3 sec (22.0-30.0); Prothrombin Time 10.7 sec (9.0-12.0)
[2020-08-14 08:20] LABS: African American GFR (CKD) >90 (>60 ml/min/1.73 sqM); Anion Gap 10 mmol/L; Blood Urea Nitrogen 11 mg/dL (9-20); Calcium 8.8 mg/dL (8.4-10.2); Carbon Dioxide 26 mmol/L (22-30); Chloride 103 mmol/L (98-107); Glucose 101 mg/dL (74-99); Non-African American GFR(CKD) 80 (>60 ml/min/1.73 sqM); Potassium 3.9 mmol/L (3.5-5.1); Sodium 139 mmol/L (137-145)
[2020-08-14 08:48] VITALS: BP 136/85; PULSE 59
== END 2020-08-14 08:44 | disposition home or self-care (01) ==
LOC: EC 07:36
DX: R04.0 Epistaxis (principal); R42 Dizziness and giddiness; F41.9 Anxiety disorder, unspecified; F32.9 Major depressive disorder, single episode, unspecified; E78.5 Hyperlipidemia, unspecified; I10 Essential (primary) hypertension; I25.2 Old myocardial infarction; I25.10 Atherosclerotic heart disease of native coronary artery without angina pectoris; Z79.82 Long term (current) use of aspirin; Z79.899 Other long term (current) drug therapy; Z95.5 Presence of coronary angioplasty implant and graft; Z87.891 Personal history of nicotine dependence; Z91.048 Other nonmedicinal substance allergy status
CPT/HCPCS: 36415; 80048; 85025; 85610; 85730; 86850; 86900; 86901; 93005; 99284

== ENCOUNTER → 2023-07-24 | Outpatient (CLI) | payer OTHER ==
--- NOTE | 2023-07-24 11:12 | XR ---
EXAMINATION TYPE: XR lumbar spine 2 or 3V DATE OF EXAM: 07/24/2023 10:10 AM CLINICAL INDICATION:Male, 58 years old with history of S33. 130A SUBLUXATION OF L3/L4 LUMBAR VERTEBRA , IN; [facility] COMPARISON: None TECHNIQUE: XR lumbar spine 2 or 3V - Frontal, lateral and coned in L5-S1 lateral views of the spine. FINDINGS: No evidence of any acute osseous pathology. No evidence of loss of vertebral body height i s seen. There is normal alignment of the lumbar vertebral bodies. Mild scattered disc space narrowing . Multilevel marginal osteophyte formation throughout the visualized spine. There is facet joint arth ropathy throughout the spine. Scattered at least mild neural foraminal stenosis. IMPRESSION: 1. No acute fracture. 2. Moderate multilevel disc degeneration.
== END | disposition home or self-care (01) ==
LOC: RADXRMAIN 09:56
PROVIDERS: ATTEND Family Medicine
DX: M51.37 Other intervertebral disc degeneration, lumbosacral region (principal)
CPT/HCPCS: 72100

== ENCOUNTER 2023-08-31 13:45 | Emergency (ER) | payer OTHER ==
--- NOTE | 2023-08-31 13:50 | ED ---
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 Patient was on his ladder this morning and fell off around 9 AM. States that he seems to have twisted his right leg on the way down. The fall was from a height of 6-7 feet. Denies hitting his head, but states that he is on blood thinners. All of his pain is localized to the right knee, particularly behind it. He is having difficulty walking as a result of the pain. (Diane Molina) This is a 58-year-old male to the ER after a fall off a ladder. Patient fell hours ago off a ladder but the pain has been increasing since then with increasing swelling of the right knee and difficulty moving the knee with significant decreased range of motion. He is on blood thinners and concern for amount of swelling (Dax Pisano) - Related Data Home Medications Medication Instructions Recorded Confirmed ALPRAZolam [Xanax] 0.5 mg PO DAILY 12/10/16 08/25/22 Aspirin 81 mg PO DAILY 12/10/16 08/25/22 Niacin 500 mg PO DAILY 12/10/16 08/21/22 FLUoxetine HCL [PROzac] 40 mg PO DAILY 03/09/19 08/21/22 Ferrous Sulfate [Iron (65 MG 325 mg PO DAILY 05/09/19 08/21/22 Elemental)] Atorvastatin [Lipitor] 80 mg PO DAILY 08/14/20 08/21/22 Metoprolol Tartrate [Lopressor] 25 mg PO DAILY 08/14/20 08/21/22 Previous Rx's Medication Instructions Recorded Clopidogrel [Plavix] 75 mg PO DAILY #90 tab 08/26/22 amLODIPine [Norvasc] 5 mg PO DAILY #90 tab 08/26/22 hydroCHLOROthiazide [Hydrodiuril] 25 mg PO HS #90 tab 08/26/22 Allergies Allergy/AdvReac Type Severity Reaction Status Date / Time ENTERIC COATING Allergy Itching/Abdominal Uncoded 08/31/23 13:50 pain Review of Systems ROS Other: All systems not noted in ROS Statement are negative. <Diane Molina - Last Filed: 08/31/23 13:50> ROS Other: All systems not noted in ROS Statement are negative. <Dax Pisano - Last Filed: 09/10/23 01:19> ROS Statement: Those systems with pertinent positive or pertinent negative responses have been documented in the HPI. 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 Last Myocardial Infarction Date:: Feb History of Any Multi-Drug Resistant Organisms: None Reported Past Surgical History: Heart Catheterization With Stent Additional Past Surgical History / Comment(s): PCI with total of 2 stents-2012 stent to LCX and in 2017 stent to mid LAD, Egd/colonoscopy, R foot surgery d/t foreign body as child Past Anesthesia/Blood Transfusion Reactions: No Reported Reaction Date of Last Stent Placement:: 2016 Smoking Status: Former smoker - Past Family History Sister(s) Family Medical History: Cancer Additional Family Medical History / Comment(s): Sister of lung cancer. She was a smoker. Mother Family Medical History: Dementia Additional Family Medical History / Comment(s): Mother is living. Father Family Medical History: Cancer Additional Family Medical History / Comment(s): Father of cancer at the age of 81 yrs. Pt does not know type of cancer. <Diane Molina - Last Filed: 08/31/23 13:50> General Exam <Diane Molina - Last Filed: 08/31/23 13:50> General appearance: alert, in no apparent distress Head exam: Present: atraumatic, normocephalic, normal inspection Eye exam: Present: normal appearance, PERRL, EOMI. Absent: scleral icterus, conjunctival injection, periorbital swelling ENT exam: Present: normal exam, mucous membranes moist Neck exam: Present: normal inspection. Absent: tenderness, meningismus, lymphadenopathy Respiratory exam: Present: normal lung sounds bilaterally. Absent: respiratory distress, wheezes, rales, rhonchi, stridor Cardiovascular Exam: Present: regular rate, normal rhythm, normal heart sounds. Absent: systolic murmur, diastolic murmur, rubs, gallop, clicks GI/Abdominal exam: Present: soft, normal bowel sounds. Absent: distended, tenderness, guarding, rebound, rigid Extremities exam: Present: normal inspection, full ROM, normal capillary refill. Absent: tenderness, pedal edema, joint swelling, calf tenderness Back exam: Present: normal inspection Neurological exam: Present: alert, oriented X3, CN II-XII intact Psychiatric exam: Present: normal affect, normal mood Skin exam: Present: warm, dry, intact, normal color. Absent: rash <Dax Pisano - Last Filed: 09/10/23 01:19> - General Exam Comments Initial Comments: Visual Physical Exam Vital signs reviewed General: Well-appearing, nontoxic, no acute distress. Head: Normocephalic, atraumatic Eyes: PERRLA, EOMI ENT: Airway patent Chest: Nonlabored breathing Skin: No visual rash, normal skin tone Neuro: Alert and oriented 3 Musculoskeletal: No gross abnormalities (Diane Molina) Course <Dax Pisano - Last Filed: 09/10/23 01:19> Vital Signs 08/31/23 08/31/23 13:47 15:37 Temperature 98.1 F 98 F Pulse Rate 68 91 Respiratory 16 18 Rate Blood Pressure 141/78 133/78 O2 Sat by Pulse 96 99 Oximetry - Reevaluation(s) Reevaluation #1: Medical records reviewed (Dax Pisano) Reevaluation #2: Patient symptoms improved (Dax Pisano) Reevaluation #3: Patient informed of results and questions answered (Dax Pisano) Reevaluation #4: Was pt. sent in by a medical professional or institution (CHARY Cristina, EMERGENCY RESPONSE TECHNICIAN, urgent care, hospital, or care home...) When possible be specific @ -no Did you speak to anyone other than the patient for history (EMS, parent, family, police, friend...)? What history was obtained from this source @ -no Did you review nursing and triage notes (agree or disagree)? Why? @ -agree Are old charts reviewed (outside hosp., previous admission, EMS record, old EKG, old radiological studies, urgent care reports/EKG's, care home records)? Report findings @ -yes Differential Diagnosis (chest pain, altered mental status, abdominal pain women, abdominal pain men, vaginal bleeding, weakness, fever, dyspnea, syncope, headache, dizziness, GI bleed, back pain, seizure, CVA, palpatations, mental health, musculoskeletal)? @ -prior EKG interpreted by me (3pts min.). @ -no X-rays interpreted by me (1pt min.). @ -yes negative for acute disease CT interpreted by me (1pt min.). @ -no U/S interpreted by me (1pt. min.). @ -no What testing was considered but not performed or refused? (CT, X-rays, U/S, labs)? Why? @ -none What meds were considered but not given or refused? Why? @ -none Did you discuss the management of the patient with other professionals (professionals i.e. CHARY Cristina, EMERGENCY RESPONSE TECHNICIAN, lab, RT, psych nurse, geriatric social work professor, classroom technology technician, teacher, credit or loans officer, nurse outreach case manager)? Give summary @ -no Was smoking cessation discussed for >3mins.? @ -no Was critical care preformed (if so, how long)? @ -no Were there social determinants of health that impacted care today? How? (Homelessness, low income, unemployed, alcoholism, drug addiction, transportation, low edu. Level, literacy, decrease access to med. care, nursing home, rehab)? @ -none Was there de-escalation of care discussed even if they declined (Discuss DNR or withdrawal of care, Hospice)? DNR status @ -no What co-morbidities impacted this encounter? (DM, HTN, Smoking, COPD, CAD, Cancer, CVA, ARF, Chemo, Hep., AIDS, mental health diagnosis, sleep apnea, morbid obesity)? @ -none Was patient admitted / discharged? Hospital course, mention meds given and route, prescriptions, significant lab abnormalities, going to OR and other pertinent info. @ - 58 male to ER after a fall off a ladder. Patient has fall with severe right knee pain and contusion. X-rays are negative for significant acute injury and patient can be discharged home Discharge Undiagnosed new problem with uncertain prognosis? @ -no Drug Therapy requiring intensive monitoring for toxicity (Heparin, Nitro, Insulin, Cardizem)? @ -no Were any procedures done? @ -no Diagnosis/symptom? @ -Fall, right knee pain of confusion and contusion Acute, or Chronic, or Acute on Chronic? @ -Acute Uncomplicated (without systemic symptoms) or Complicated (systemic symptoms)? @ -Complicated Side effects of treatment? @ -no Exacerbation, Progression, or Severe Exacerbation? @ -exacerbation Poses a threat to life or bodily function? How? (Chest pain, USA, AR, pneumonia, PE, COPD, DKA, ARF, appy, cholecystitis, CVA, Diverticulitis, Homicidal, Suicidal, threat to staff... and all critical care pts) @ -yes with significant fall off ladder (Dax Pisano) Medical Decision Making <Diane Molina - Last Filed: 08/31/23 13:50> - Radiology Data Radiology results: report reviewed (X-ray knee is negative for acute disease), image reviewed <Dax Pisano - Last Filed: 09/10/23 01:19> - Medical Decision Making I performed the QuickNote portion of this chart. Signed Diane Molina PA-C. (Diane Molina) 58 male to ER after a fall off a ladder. Patient has fall with severe right knee pain and contusion. X-rays are negative for significant acute injury and patient can be discharged home (Dax Pisano) Disposition <Diane Molina - Last Filed: 08/31/23 13:50> Is patient prescribed a controlled substance at d/c from ED?: No Time of Disposition: 15:35 <Dax Pisano - Last Filed: 09/10/23 01:19> Clinical Impression: Fall, Right knee pain, Knee effusion, right, Contusion of right knee Disposition: HOME SELF-CARE Condition: Good Instructions (If sedation given, give patient instructions): Swollen Knee Joint (ED), Knee Pain (ED) Referrals: Tyrese Christopher DO [Primary Care Provider] - 1-2 days
--- NOTE | 2023-08-31 14:17 | XR ---
EXAMINATION TYPE: XR knee complete RT DATE OF EXAM: 08/31/2023 COMPARISON: NONE HISTORY: 58-year-old male with pain after fall TECHNIQUE: 3 views FINDINGS: A couple benign bone islands within the medial tibial plateau. There may be mild anterior s oft tissue swelling. No significant joint effusion. Extensor mechanism appears intact. No acute fract ure, subluxation, dislocation seen. IMPRESSION: There may be mild anterior soft tissue swelling. No acute osseous abnormality seen.
[2023-08-31 16:00] VITALS: BP 133/78; TEMP 98
[2023-08-31 16:01] VITALS: PULSE 91; RESP 18
== END 2023-08-31 15:45 | disposition home or self-care (01) ==
LOC: EC 13:45
DX: S80.01XA Contusion of right knee, initial encounter (principal); I25.10 Atherosclerotic heart disease of native coronary artery without angina pectoris; I10 Essential (primary) hypertension; I25.2 Old myocardial infarction; E78.5 Hyperlipidemia, unspecified; Z87.891 Personal history of nicotine dependence; Z79.899 Other long term (current) drug therapy; Z88.8 Allergy status to other drugs, medicaments and biological substances; Z79.82 Long term (current) use of aspirin; W11.XXXA Fall on and from ladder, initial encounter
CPT/HCPCS: 99284

== ENCOUNTER → 2023-09-24 | Outpatient (CLI) | payer OTHER ==
--- NOTE | 2023-09-25 12:11 | MR ---
EXAMINATION TYPE: MR knee RT wo con DATE OF EXAM: 09/24/2023 COMPARISON: None HISTORY: Right knee pain x3 weeks TECHNIQUE: Multiplanar, multisequence imaging of the right knee is performed without IV contrast. FINDINGS: There is no bone contusion or fracture. There is a small joint effusion and a tiny Stack's cyst. There is extensive edema within the fascial planes of the posterior soft tissues of the knee. There i s a heterogeneous 3.2 cm mass adjacent to the superior aspect of the medial gastroc muscle which most likely represent cysts hematoma. There is a tear of the posterior cruciate ligament. There is a severe strain of the anterior cruciate ligament but intact fibers persist. There is a grade 1 strain of the medial collateral ligament. The lateral collateral ligament is intac t. There is no meniscal tear. The patellar and quadriceps tendons are intact. IMPRESSION: 1. Small joint effusion. 2. No bone contusion or fracture. 3. Grade 1 strain of the medial collateral ligament. 4. Tear of the posterior cruciate ligament. 5. Severe strain of the anterior cruciate ligament is described. 6. No meniscal tear.
== END | disposition home or self-care (01) ==
LOC: RADMRIMAIN 15:49
PROVIDERS: ATTEND Orthopaedic Surgery
DX: M23.8X1 Other internal derangements of right knee (principal); M25.461 Effusion, right knee; S83.521A Sprain of posterior cruciate ligament of right knee, initial encounter; X58.XXXA Exposure to other specified factors, initial encounter